=== PATIENT | male | born 1950 | race Caucasian/White ===

== ENCOUNTER 2017-11-28 17:16 | Day surgery (SDC) | payer MEDICARE, OTHER ==
[~2017-11-28] VITALS: Ht 185.4 cm; Wt 148.8 kg
[~2017-11-28 17:16] MED LIST: FERR325T18 PO; HYDR-2890 PO; OMEP20TA7 PO; SERT100T8 PO
--- OUTSIDE RECORDS SUMMARY | 2017-11-28 17:22 | XMS REPORT | Continuity of Care Document ---
Author Author [facility] Organization [facility] Address Unknown Phone Unavailable Allergies Active Description Code Type Severity Reaction Onset Reported/Identified Relationship to Patient Clinical Status Yes No Known Drug Allergies [id number] Drug Allergy Unknown N/A 10/13/2015 Medications There is no data. Problems Date Dx Coded Attending Type Code Diagnosis Diagnosed By 03/06/2009 Ot 569.0 ANAL RECTAL POLYP 03/06/2009 Ot V76.51 SCREEN MAL NEOP-COLON 02/26/2011 Ot 592.1 02/26/2011 Ot 789.09 02/16/2015 YARELI ISBELL MD Ot R05 02/17/2015 YARELI ISBELL MD Ot R05 02/24/2015 YARELI ISBELL MD Ot R05 10/13/2015 YARELI ISBELL MD Ot D50.9 IRON DEFICIENCY ANEMIA, UNSPECIFIED 10/13/2015 YARELI ISBELL MD Ot Z01.818 ENCOUNTER FOR OTHER PREPROCEDURAL EXAMIN 10/15/2015 YARELI ISBELL MD Ot D50.9 IRON DEFICIENCY ANEMIA, UNSPECIFIED 10/15/2015 YARELI ISBELL MD Ot Z01.818 ENCOUNTER FOR OTHER PREPROCEDURAL EXAMIN 10/15/2015 YARELI ISBELL MD Ot D50.9 IRON DEFICIENCY ANEMIA, UNSPECIFIED 10/15/2015 YARELI ISBELL MD Ot Z01.818 ENCOUNTER FOR OTHER PREPROCEDURAL EXAMIN 10/16/2015 YARELI ISBELL MD Ot D50.9 IRON DEFICIENCY ANEMIA, UNSPECIFIED 10/16/2015 YARELI ISBELL MD Ot K29.50 UNSPECIFIED CHRONIC GASTRITIS WITHOUT BL 10/16/2015 YARELI ISBELL MD Ot K31.7 POLYP OF STOMACH AND DUODENUM 10/21/2015 YARELI ISBELL MD Ot D50.9 IRON DEFICIENCY ANEMIA, UNSPECIFIED 10/21/2015 YARELI ISBELL MD Ot K29.50 UNSPECIFIED CHRONIC GASTRITIS WITHOUT BL 10/21/2015 YARELI ISBELL MD Ot K31.7 POLYP OF STOMACH AND DUODENUM 10/23/2015 YARELI ISBELL MD Ot D50.9 IRON DEFICIENCY ANEMIA, UNSPECIFIED 10/23/2015 YARELI ISBELL MD Ot K29.50 UNSPECIFIED CHRONIC GASTRITIS WITHOUT BL 10/23/2015 YARELI ISBELL MD Ot K31.7 POLYP OF STOMACH AND DUODENUM 11/07/2016 YARELI ISBELL MD Ot R05 COUGH 11/16/2017 YARELI ISBELL MD Ot R05 COUGH Procedures There is no data. Results There is no data. Encounters ACCT No. Visit Date/Time Discharge Status Pt. Type Provider Facility Loc./Unit Complaint [id number] 11/15/2017 15:40:00 11/15/2017 23:59:59 CLS Preadmit YARELI ISBELL MD [facility] RT INCREASED SOB,COUGH [id number] 10/16/2015 08:23:00 10/16/2015 11:50:00 DIS Outpatient YARELI ISBELL MD [facility] SDC ANEMIA [id number] 10/13/2015 06:22:00 10/13/2015 13:37:00 DIS Outpatient YARELI ISBELL MD [facility] PREOP ANEMIA [id number] 02/12/2015 13:36:00 02/12/2015 23:59:59 CLS Outpatient YARELI ISBELL MD [facility] RAD COUGH [id number] 02/26/2011 07:34:00 Document Registration [id number] 03/06/2009 06:57:00 Document Registration
[2017-11-28] MEDS ORDERED: NITROGLYCERIN 0.4 MG SL TABS BTL 25'S SL PRN (17:30)
[2017-11-28] MEDS ORDERED: ASPIRIN 81 MG CHEW (CHILDREN'S ASA) PO ONE (17:30)
[2017-11-28 17:39] LABS: BASOPHILS % (AUTO) 0 % (0-10); EOSINOPHILS # (AUTO) 0.2 10^3/uL (0.0-0.3); EOSINOPHILS % (AUTO) 3 % (0-10); HEMATOCRIT 41 % (40-54); HEMOGLOBIN 13.6 G/DL (13.3-17.7); LYMPHOCYTES # (AUTO) 2.1 X 10^3 (1.0-4.0); LYMPHOCYTES % (AUTO) 30 % (12-44); MEAN CORPUSCULAR HEMOGLOBIN 27 PG (25-34); MEAN CORPUSCULAR HGB CONC 33 G/DL (32-36); MEAN CORPUSCULAR VOLUME 80 FL (80-99); MEAN PLATELET VOLUME 10.1 FL (7.4-10.4); MONOCYTES # (AUTO) 0.6 X 10^3 (0.0-1.0); MONOCYTES % (AUTO) 9 % (0-12); NEUTROPHILS % (AUTO) 58 % (42-75); PLATELET COUNT 272 10^3/uL (130-400); RED CELL DISTRIBUTION WIDTH 17.3 % (10.0-14.5)
--- NOTE | 2017-11-28 17:45 | ED Chest Pain ---
General Stated Complaint: CHEST TIGHTNESS, SOB, SWEATY Source: patient Exam Limitations: no limitations (JOE ALCANTAR MD) History of Present Illness Date Seen by Provider: Nov 28, 2017 Time Seen by Provider: 17:21 Initial Comments Here with report of tightness in his chest and shortness of breath when he was walking. He is noted that this is increased with activity over the last several months. He is scheduled for pulmonary function test tomorrow. He recently had labs drawn with a BNP that was noted to be normal. Tonight did concern him a little bit as he was more short of breath than he typically is when walking. States that he is anemic but does not know what that level is. Denies active chest pain now and states that he feels better. [place] weakness in that still continues although a little less. Was also noted to be sweating during the event which has also resolved. Timing/Duration: 1 hour, changing over time Severity/Quality: moderate, tightness Location: central Radiation: no radiation Activities at Onset: activity Prior CP/Workup: no prior chest pain, no prior cardiac workup ASA po VULCANIZING PRESS OPERATOR: No NTG SL VULCANIZING PRESS OPERATOR: No Associated Symptoms: No abdominal pain, No back pain; diaphoresis; No dizziness ; fatigue; No nausea/vomiting; shortness of breath, weakness (JOE ALCANTAR MD) Allergies and Home Medications Allergies Coded Allergies: No Known Drug Allergies (Unverified , 11/28/17) Home Medications Omeprazole 20 Mg Tablet.dr, 20 MG PO DAILY, (Reported) Sertraline HCl 100 Mg Tablet, 150 MG PO DAILY, (Reported) TAKE 1 1/2 OF 100MG TAB TO TOTAL 150MG Patient Home Medication List Home Medication List Reviewed: Yes (JOE ALCANTAR MD) Review of Systems Constitutional: see HPI; No chills, No fever EENTM: No Symptoms Reported Respiratory: See HPI Cardiovascular: See HPI; Denies Palpitations, Denies Syncope Gastrointestinal: Denies Abdominal Pain, Denies Nausea, Denies Vomiting Genitourinary: No Symptoms Reported Musculoskeletal: no symptoms reported (JOE ALCANTAR MD) All Other Systems Reviewed Negative Unless Noted: Yes (JOE ALCANTAR MD) Past Cgihmha-Aigvzg-Akptma Hx Past Med/Social Hx: Reviewed Nursing Past Med/Soc Hx (JOE ALCANTAR MD) Patient Social History Alcohol Use: Denies Use Recreational Drug Use: No Smoking Status: Never a Smoker Former Smoker, Quit: Oct 15, 1989 (JOE ALCANTAR MD) Past Medical History Surgeries: Yes (skin) Testicular Respiratory: No Cardiac: No Neurological: No Gastrointestinal: Yes Gastroesophageal Reflux, Gastrointestinal Bleed Musculoskeletal: No Psychosocial: Yes Depression (JOE ALCANTAR MD) Family Medical History No Pertinent Family Hx (JOE ALCANTAR MD) Physical Exam Vital Signs Vital Signs - First Documented 11/28/17 17:16 Temp 98.0 Pulse 69 Resp 16 B/P (MAP) 144/78 (100) Pulse Ox 97 O2 Delivery Room Air (BLANCA GRIFFIN APRN) Vital Signs Capillary Refill : (JOE ALCANTAR MD) Height, Weight, BMI Height: 6'1.00" Weight: 300lbs. 0.0oz. 136.662605ww; 39.6 BMI Method:Stated General Appearance: No Apparent Distress, WD/WN, Obese HEENT: PERRL/EOMI, Pharynx Normal Neck: Non Tender, Supple Respiratory: Lungs Clear, Normal Breath Sounds Cardiovascular: Regular Rate, Rhythm, No Murmur Gastrointestinal: Non Tender, Soft Extremity: Normal Range of Motion, Non Tender Neurologic/Psychiatric: Alert, Oriented x3 Skin: Normal Color, Warm/Dry (JOE ALCANTAR MD) Progress/Results/Core Measures Results/Orders Lab Results Laboratory Tests Test 11/28/17 17:30 Range/Units White Blood Count 7.0 4.3-11.0 10^3/uL Red Blood Count 5.10 4.35-5.85 10^6/uL Hemoglobin 13.6 13.3-17.7 G/DL Hematocrit 41 40-54 % Mean Corpuscular Volume 80 80-99 FL Mean Corpuscular Hemoglobin 27 25-34 PG Mean Corpuscular Hemoglobin Concent 33 32-36 G/DL Red Cell Distribution Width 17.3 H 10.0-14.5 % Platelet Count 272 130-400 10^3/uL Mean Platelet Volume 10.1 7.4-10.4 FL Neutrophils (%) (Auto) 58 42-75 % Lymphocytes (%) (Auto) 30 12-44 % Monocytes (%) (Auto) 9 0-12 % Eosinophils (%) (Auto) 3 0-10 % Basophils (%) (Auto) 0 0-10 % Neutrophils # (Auto) 4.0 1.8-7.8 X 10^3 Lymphocytes # (Auto) 2.1 1.0-4.0 X 10^3 Monocytes # (Auto) 0.6 0.0-1.0 X 10^3 Eosinophils # (Auto) 0.2 0.0-0.3 10^3/uL Basophils # (Auto) 0.0 0.0-0.1 10^3/uL Prothrombin Time 14.5 12.2-14.7 SEC INR Comment 1.1 0.8-1.4 Activated Partial Thromboplast Time 31 24-35 SEC D-Dimer 0.52 H 0.00-0.49 UG/ML Sodium Level 138 135-145 MMOL/L Potassium Level 3.9 3.6-5.0 MMOL/L Chloride Level 106 98-107 MMOL/L Carbon Dioxide Level 23 21-32 MMOL/L Anion Gap 9 5-14 MMOL/L Blood Urea Nitrogen 15 7-18 MG/DL Creatinine 0.94 0.60-1.30 MG/DL Estimat Glomerular Filtration Rate > 60 BUN/Creatinine Ratio 16 Glucose Level 90 70-105 MG/DL Calcium Level 8.8 8.5-10.1 MG/DL Corrected Calcium 8.7 8.5-10.1 MG/DL Magnesium Level 2.0 1.8-2.4 MG/DL Total Bilirubin 0.7 0.1-1.0 MG/DL Aspartate Amino Transf (AST/SGOT) 24 5-34 U/L Alanine Aminotransferase (ALT/SGPT) 27 0-55 U/L Alkaline Phosphatase 89 40-136 U/L Myoglobin 97.7 H 10.0-92.0 NG/ML Troponin I < 0.30 <0.30 NG/ML B-Type Natriuretic Peptide 40.8 <100.0 PG/ML Total Protein 6.8 6.4-8.2 GM/DL Albumin 4.1 3.2-4.5 GM/DL (BLANCA GRIFFIN APRN) Medications Given in ED Current Medications Medications Dose Ordered Sig/Artem Route Start Time Stop Time Status Last Admin Dose Admin Aspirin 324 mg ONCE ONCE PO 11/28/17 17:30 11/28/17 17:31 DC 11/28/17 17:57 324 MG (BLANCA GRIFFIN APRN) Vital Signs/I&O 11/28/17 17:16 Temp 98.0 Pulse 69 Resp 16 B/P (MAP) 144/78 (100) Pulse Ox 97 O2 Delivery Room Air (BLANCA GRIFFIN APRN) Progress Progress Note : Progress Note Seen and evaluated. IV, labs, EKG and chest x-ray. I did discuss the case with Dr. Daley at 1735. Given patient's history and presentation he would prefer admission but patient is not sure he wants to do that. We will get an initial set of labs and reevaluate after that is complete. Initial EKG does not show any significant findings and patient is doing better currently. Aspirin 324 milligrams by mouth given. Monitor patient. (JOE ALCANTAR MD) Initial ECG Impression Date: Nov 28, 2017 Initial ECG Impression Time: 17:21 Initial ECG Rhythm: Normal Sinus Initial ECG Comparisson: No Previous ECG Available Comment Sinus rhythm with normal axis. No evidence of ST elevation MT. No previous available for comparison. Interpreted by me. (JOE ALCANTAR MD) Departure Communication (Admissions) Time/Spoke to Admitting Phy: 18:[address] Mullen who will admit. Will consult cardiology. I'll repeat a troponin at 11 PM which is 6 hours after arrival and again at 5 AM. Time/Spoke to Consulting Phy: 18:[address] Metz on-call for cardiology. He'll see Mr. Fernandes in the morning , nothing by mouth after midnight. 1824 he remains symptom-free. His preference would be to go home after repeat troponin few hours. His d-dimer adjusted for age is negative. However his is very concerned about him and would like to see him admitted. After much debate between her and him, she convinced him to stay to be observed and have cardiology consult. (BLANCA GRIFFIN APRN) Impression Primary Impression: Chest pain on exertion Disposition: ADMITTED INPATIENT Condition: Stable Admissions Decision to Admit Reason: Admit from ER (General) Decision to Admit/Date: Nov 28, 2017 Time/Decision to Admit Time: 18:26 (BLANCA GRIFFIN APRN) Departure-Patient Inst. Referrals: YARELI DALEY MD (PCP/Family) Primary Care Physician JOE ALCANTAR MD Nov 28, 2017 17:45 BLANCA GRIFFIN APRN Nov 28, 2017 18:27
[2017-11-28 17:53] LABS: INR 1.1 (0.8-1.4); PROTHROMBIN TIME PATIENT 14.5 SEC (12.2-14.7)
--- NOTE | 2017-11-28 17:53 | Diagnostic Imaging Report ---
Patient History: Chest discomfort, sweating, shortness of breath. Technique: Single frontal view of the chest Comparison: 02/12/2015 FINDINGS: The lung volumes are normal. No focal consolidation is seen. No large pleural effusion or pneumothorax is seen. The cardiac silhouette appears larger compared to the prior exam, although this is likely due to the change in technique and inspiration. No acute osseous abnormality is seen. IMPRESSION: No acute pulmonary abnormality seen. Dictated by: Dictated on workstation # [id number]
[2017-11-28 18:00] LABS: ALANINE AMINOTRANSFERASE 27 U/L (0-55); ALBUMIN 4.1 GM/DL (3.2-4.5); ALKALINE PHOSPHATASE 89 U/L (40-136); BILIRUBIN,TOTAL 0.7 MG/DL (0.1-1.0); BUN/CREATININE RATIO 16; CALCIUM 8.8 MG/DL (8.5-10.1); CARBON DIOXIDE 23 MMOL/L (21-32); CHLORIDE 106 MMOL/L (98-107); CREATININE SERUM 0.94 MG/DL (0.60-1.30); GFR ESTIMATED > 60; GLUCOSE 90 MG/DL (70-105); POTASSIUM 3.9 MMOL/L (3.6-5.0); SODIUM 138 MMOL/L (135-145); TOTAL PROTEIN 6.8 GM/DL (6.4-8.2)
[2017-11-28 18:06] LABS: MYOGLOBIN SERUM 97.7 NG/ML (10.0-92.0)
--- OUTSIDE RECORDS SUMMARY | 2017-11-28 18:28 | XMS REPORT | Continuity of Care Document ---
Author Author [facility] Organization [facility] Address Unknown Phone Unavailable Allergies Active Description Code Type Severity Reaction Onset Reported/Identified Relationship to Patient Clinical Status Yes No Known Drug Allergies [id number] Drug Allergy Unknown N/A 10/13/2015 Medications There [...] Status Pt. Type Provider Facility Loc./Unit Complaint [id number] 11/15/2017 15:40:00 11/15/2017 23:59:59 CLS Preadmit YARELI ISBELL MD [facility] RT INCREASED SOB,COUGH [id number] 10/16/2015 08:23:00 10/16/2015 11:50:00 DIS Outpatient YARELI ISBELL MD [facility] SDC ANEMIA [id number] 10/13/2015 06:22:00 10/13/2015 13:37:00 DIS Outpatient YARELI ISBELL MD [facility] PREOP ANEMIA [id number] 02/12/2015 13:36:00 02/12/2015 23:59:59 CLS Outpatient YARELI ISBELL MD [facility] RAD COUGH [id number] 02/26/2011 07:34:00 Document Registration [id number] 03/06/2009 06:57:00 Document Registration
[2017-11-28 19:00] VITALS: BP 146/85
[2017-11-29] VITALS (15 sets, daily range): BP systolic 115–144; BP diastolic 65–78
[2017-11-29 06:37] LABS: CHOLESTEROL 180 MG/DL (< 200); HDL CHOLESTEROL 54 MG/DL (40-60); TRIGLYCERIDES 113 MG/DL (<150); VLDL CHOLESTEROL 23 MG/DL (5-40)
--- NOTE | 2017-11-29 08:33 | History & Physical-Hospitalist ---
History of Present Illness HPI/Chief Complaint Mr. Fernandes is a 67-year-old white male who was at [employer] shopping with his . He had to get down on his hands and knees to grab some bottles of soda at the back of the bottom shelf when he became significantly diaphoretic and short of breath. He had impending sense of doom with this and told his he wanted to get out of the store because he did not want to and [employer]. He has some associated chest tightness with this. He has no history of panic disorder and for at least the past month it been experiencing significant increase in dyspnea on exertion over baseline. Previously in the office he denied chest symptoms and had been scheduled for pulmonary function tests. He is also noted a dry nonproductive cough chronic for the last 2 years with previously normal chest x-ray and office-based spirometry last year. He reports on Monday he went for a walk felt pretty good initially but had to stop after about three quarters of a mile, and rest secondary to shortness of breath with mild chest tightness. The episode at [employer] lasted 10-15 minutes in regards to his sweating and mild chest discomfort. He has no known past history of coronary artery disease. There is no family history for early coronary disease. Other risk factor other than male sex is obesity and a distant past history of smoking. Date Seen 11/29/17 Time Seen by Provider: 08:00 Attending Physician Yareli Isbell MD PCP Yareli Isbell MD Referring Physician Date of Admission Nov 28, 2017 at 18:24 Home Medications & Allergies Home Medications Reviewed patient Home Medication Reconciliation performed by pharmacy medication reconciliations specimen technician and/or nursing. Patients Allergies have been reviewed. Allergies Allergies Coded Allergies No Known Drug Allergies (Unverified11/28/17) Past Nbnvbxe-Xhdyrl-Avdkkb Hx Past Med/Social Hx: Reviewed Nursing Past Med/Soc Hx, Reviewed and Corrections made Patient Social History Alcohol Use: Denies Use Recreational Drug Use: No Smoking Status: Former Smoker Former Smoker, Quit: Apr 24, 1989 Type Used: Cigarettes Physical Abuse Screen: No Sexual Abuse: No Recent Foreign Travel: No Contact w/other who traveled: No Recent Hopitalizations: No Recent Infectious Disease Expo: No Immunizations Up To Date Pediatric: Yes Date of Pneumonia Vaccine: Apr 24, 2016 Seasonal Allergies Seasonal Allergies: No Past Medical History Surgeries: Testicular Currently Using CPAP: No Currently Using BIPAP: No Sexually Transmitted Disease: No HIV/AIDS: No Gastrointestinal: Gastroesophageal Reflux Loss of Vision: Denies Hearing Impairment: Denies Psychosocial: Anxiety History of Blood Disorders: Yes (anemia ) Family History FH: emphysema 19 FATHER FH: prostate cancer 19 FATHER No Pertinent Family Hx Review of Systems Constitutional: see HPI, diaphoresis Respiratory: see HPI, cough, dyspnea on exertion; No hemoptysis, No orthopnea, No phlegm; short of breath; No stridor, No wheezing, No other Cardiovascular: see HPI; No chest pain, No edema, No Hx of Intervention, No palpitations, No syncope, No vascular heart diseas, No other Gastrointestinal: no symptoms reported Physical Exam Physical Exam Vital Signs Vital Signs - First Documented 11/28/17 17:16 Temp 98.0 Pulse 69 Resp 16 B/P (MAP) 144/78 (100) Pulse Ox 97 O2 Delivery Room Air Capillary Refill : Less Than 3 Seconds Height, Weight, BMI Height: 6'1.00" Weight: 328lbs. 0.0oz. 148.676980zn; 43.3 BMI Method:Stated General Appearance: No Apparent Distress, WD/WN, Obese HEENT: PERRL/EOMI, TMs Normal, Normal ENT Inspection, Pharynx Normal Neck: Full Range of Motion, Normal Inspection, Non Tender, Supple, Carotid Bruit Respiratory: Chest Non Tender, Lungs Clear, Normal Breath Sounds, No Accessory Muscle Use, No Respiratory Distress Cardiovascular: Regular Rate, Rhythm, No Edema, No Gallop, No JVD, No Murmur, Normal Peripheral Pulses Gastrointestinal: Normal Bowel Sounds, No Organomegaly, No Pulsatile Mass, Non Tender, Soft Extremity: Normal Capillary Refill, Normal Inspection, Normal Range of Motion, Non Tender, No Calf Tenderness, No Pedal Edema Neurologic/Psychiatric: Alert, Oriented x3, No Motor/Sensory Deficits, Normal Mood/Affect Results Results/Procedures Labs Laboratory Tests 11/28/17 17:30 Patient resulted labs reviewed. Assessment/Plan Admission Diagnosis 1. Diaphoresis shortness of breath or chest discomfort suspicious for unstable angina. Cardiology has been consulted patient is been nothing by mouth for possible heart catheter later today which was discussed with the patient. Serial troponins have been negative and baseline EKG when the patient was asymptomatic reveals no significant abnormality. 2. The patient does have iron deficiency without significant anemia and recent occult positive stools for which she is scheduled for colonoscopy and possible EGD to follow this Monday. Unfortunately if dual antiplatelet therapy is required this will put him at increased risk for bleeding. Admission Status: Observation Reason for Inpatient Admission: See admission diagnosis Clinical Quality Measures AMI/AHF: ASA po Prior to arrival: No DVT/VTE Risk/Contraindication: Risk Factor Score Per Nursin RFS Level Per Nursing on Admit: 3=High YARELI ISBELL MD Nov 29, 2017 08:33
--- NOTE | 2017-11-29 08:42 | Consultation-Cardiology ---
HPI-Cardiology Cardiology Consultation Date of Consultation 11/29/17 Date of Admission Time Seen by Provider: 08:37 Indication: Chest pain, dyspnea HPI Patient is a very pleasant 67y/o male with no significant PMH. Presented to the ER with complaints of CP and dyspnea. Reports he was at [facility] with his yesterday when he began experiencing dyspnea with minimal exertion with associated diaphoresis and mild chest pressure. Reports episode lasted 10-15 minutes. 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 Denies any active chest pain at this time. This is a 67 years old gentleman with history of shortness of breath over the past few weeks that has been progressive, had few episode of chest tightness with exertion last episode occurred yesterday while was at [facility] where he became short of breath and diaphoretic. Described chest pain as tightness in the retrosternal area radiating to both arms. Patient came into the emergency room. He has a has been having more frequent episodes recently. Had some stuttering chest pain on and off. No palpitation or syncope. Home Medications & Allergies Allergies: Coded Allergies: No Known Drug Allergies (Unverified , 11/28/17) Home Medication List Reviewed: Yes Medication list reviewed VQJ-Idpgbg-Eubjbs Hx Patient Social History Marital Status: Employed/Student: retired Alcohol Use: Denies Use Recreational Drug Use: No Smoking Status: Former Smoker Type Used: Cigarettes Recent Foreign Travel: No Recent Infectious Disease Expo: No Recent Hopitalizations: No Physical Abuse Screen: No Sexual Abuse: No Immunizations Up To Date Date of Pneumonia Vaccine: Apr 24, 2016 Past Medical History Extobaccoism, obesity Family Medical History Significant Family History: No Pertinent Family Hx Family History: FH: emphysema 19 FATHER FH: prostate cancer 19 FATHER Constitutional: No chills; diaphoresis, malaise EENTM: No hearing loss, No blurred vision, No double vision, No vision loss Respiratory: cough, dyspnea on exertion, short of breath; No wheezing Cardiovascular: chest pain Gastrointestinal: No abdominal pain, No diarrhea, No hematemesis Genitourinary: No frequency, No hematuria Musculoskeletal: No back pain, No joint pain Skin: No lesions, No rash Psychiatric/Neurological: Denies Anxiety, Denies Depressed Reviewed Test Results Reviewed Test Results Lab Laboratory Tests 11/28/17 17:30: White Blood Count 7.0, Red Blood Count 5.10, Hemoglobin 13.6, Hematocrit 41, Mean Corpuscular Volume 80, Mean Corpuscular Hemoglobin 27, Mean Corpuscular Hemoglobin Concent 33, Red Cell Distribution Width 17.3H, Platelet Count 272, Mean Platelet Volume 10.1, Neutrophils (%) (Auto) 58, Lymphocytes (%) (Auto) 30 , Monocytes (%) (Auto) 9, Eosinophils (%) (Auto) 3, Basophils (%) (Auto) 0, Neutrophils # (Auto) 4.0, Lymphocytes # (Auto) 2.1, Monocytes # (Auto) 0.6, Eosinophils # (Auto) 0.2, Basophils # (Auto) 0.0, Prothrombin Time 14.5, INR Comment 1.1, Activated Partial Thromboplast Time 31, D-Dimer 0.52H, Sodium Level 138, Potassium Level 3.9, Chloride Level 106, Carbon Dioxide Level 23, Anion Gap 9, Blood Urea Nitrogen 15, Creatinine 0.94, Estimat Glomerular Filtration Rate > 60, BUN/Creatinine Ratio 16, Glucose Level 90, Calcium Level 8.8, Corrected Calcium 8.7, Magnesium Level 2.0, Total Bilirubin 0.7, Aspartate Amino Transf (AST/SGOT) 24, Alanine Aminotransferase (ALT/SGPT) 27, Alkaline Phosphatase 89, Myoglobin 97.7H, Troponin I < 0.30, B-Type Natriuretic Peptide 40.8, Total Protein 6.8, Albumin 4.1 11/29/17 00:01: Troponin I < 0.30 11/29/17 06:00: Troponin I < 0.30, Triglycerides Level 113, Cholesterol Level 180, LDL Cholesterol Direct 109, VLDL Cholesterol 23, HDL Cholesterol 54 ECG Impression ECG Initial ECG Rhythm: Normal Sinus Physical Exam Vital Signs Vital Signs - First Documented 11/28/17 17:16 Temp 98.0 Pulse 69 Resp 16 B/P (MAP) 144/78 (100) Pulse Ox 97 O2 Delivery Room Air Capillary Refill : Less Than 3 Seconds Height, Weight, BMI Height: 6'1.00" Weight: 328lbs. 0.0oz. 148.689984fv; 43.3 BMI Method:Stated General Appearance: No Apparent Distress, WD/WN HEENT: PERRL/EOMI, TMs Normal, Normal ENT Inspection Neck: Full Range of Motion, Normal Inspection, Non Tender, Supple; No Carotid Bruit Respiratory: Chest Non Tender, Lungs Clear, Normal Breath Sounds, No Accessory Muscle Use, No Respiratory Distress Cardiovascular: Regular Rate, Rhythm, No Edema, No Gallop, No JVD, No Murmur, Normal Peripheral Pulses Gastrointestinal: Non Tender, Soft Rectal: Deferred Back: No CVA Tenderness Extremity: Non Tender, No Calf Tenderness, No Pedal Edema Neurologic/Psychiatric: Alert, Oriented x3, tank terminal gauger II-XII Norm as Tested Skin: Normal Color, Warm/Dry Lymphatic: No Adenopathy A/P-Cardiology Admission Diagnosis Chest pain Dyspnea Obesity Extobaccoism Assessment/Plan Chest pain, resembling accelerating angina- EKG revealed no acute ST changes, cardiac enzymes negative. However, patients symptoms are concerning for underlying CAD. Discussed management plan with patient. Will discuss with Dr. Metz stress test vs. cardiac catheterization to be done today. Will keep patient NPO. Dyspnea, angina equivalent, management as discussed above Obesity Extobaccoism- history of cigarette use in remote past. HLP- mildly elevated LDL. Continue to monitor. Thank you for allowing us to participate in the management of Mr. Fernandes. This is Rosalie Robbins PA-C, as a scribe for Dr. Metz. This is Dr. Metz, I have seen and evaluated the patient with Rosalie, interviewed the patient and examine him personally. Discussed the management plan with Rosalie and agree with the current scribe. On my examination his lungs were clear to auscultation bilaterally, heart is regular rate and rhythm, neck supple with no JVD. No pedal edema was noted. He has been reporting recurrent chest pain. We discussed the management plan recommended proceeding with cardiac catheterization. Patient has been anxious about the recurrent chest pain and increased risk factors. He agreed on the procedure understands the risks and benefits. I reviewed the above scribe and made few minor modification using Italic Font Clinical Quality Measures AMI/AHF: ASA po Prior to arrival: No DVT/VTE Risk/Contraindication: Risk Factor Score Per Nursin RFS Level Per Nursing on Admit: 3=High ROSALIE SAAB Nov 29, 2017 08:42 DEB METZ MD Nov 29, 2017 13:17
[2017-11-29] MEDS ORDERED: ASPIRIN E.C. 81 MG (ECOTRIN) TAB PO SCH (09:00)
[2017-11-29] MEDS ORDERED: OMEP40CA36 PO (10:22)
[2017-11-29] MEDS ORDERED: FERR-84 PO (10:22)
[2017-11-29] MEDS ORDERED: NAPR220T66 PO (10:24)
[2017-11-29] MEDS ORDERED: HEParin (CATH LAB) 2,000 ML IV ONE (10:52)
[2017-11-29] MEDS ORDERED: NS IV 1000 ML 1,000 ML ONE (10:52)
--- NOTE | 2017-11-29 13:18 | Cardiac Procedure Note-CS/ASA ---
Pre-Procedure Note Pre-Op Procedure Note H&P Reviewed The H&P was reviewed, patient examined and no changes noted. Date H&P Reviewed: Nov 29, 2017 Time H&P Reviewed: 13:17 Conscious Sedation Pre-Proced Time Reviewed: 13:17 ASA Class: 3 Airway Mallampati Classification: ([place] appropriate class) I. II. III, IV Lungs Heart ASA score ASA 1: a normal healthy patient ASA 2: a patient with a mild systemic disease (mid diabetes, controlled hypertension, obesity x ASA 3: a patient with a severe systemic disease that limits activity (angina , COPD, prior Myocardial infarction) ASA 4: a patient with an incapacitating disease that is a constant threat to life (CHF, renal failure) ASA 5: a moribund patient not expected to survive 24 hrs. (ruptured aneurysm) ASA 6: a declared brain patient whose organs are being harvested. For emergent operations, add the letter E after the classification Grade 3 Sedation Plan: Analgesia, Amnesia, Plan communicated to team members, Discussed options with patient/fam, Discussed risks with patient/fam Note The patient is an appropriate candidate to undergo the planned procedure, sedation, and anesthesia. The patient immediately re-assessed prior to indication. DEB MALDONADO MD Nov 29, 2017 13:18
[2017-11-29] MEDS ORDERED: LIDOCAINE 1% INJ 20 ML 20 ML VIAL ONE (13:35)
[2017-11-29] MEDS ORDERED: MIDAZOLAM 5 MG/5 ML (VERSED) VIAL ONE (13:52)
[2017-11-29] MEDS ORDERED: fentaNYL INJECTION 100 MCG/2 ML AMP ONE (13:53)
[2017-11-29] MEDS ORDERED: NS IV 1000 ML 1,000 ML IV SCH ×2 (14:00→14:27)
[2017-11-29] MEDS ORDERED: ASPI-983 PO (14:28)
--- NOTE | 2017-11-29 14:29 | Discharge Inst-Post CATH ---
Discharge Inst-CATH Post Cardiac Cath D/C Inst Follow Up/Plan Appointment with Dr. Metz's office in 4 weeks CARDIAC CATH DISCHARGE INSTRUCTIONS *Hold Metformin for 48 hours post heart cath. ACTIVITY * Go Home directly and rest. * Limit activity of the leg (or wrist if it was used) for 7 days including aerobics, swimming, jogging, bicycling, etc. * Restrict stair-climbing for 7 days if possible, if not, climb up with your non -cath leg, then bring together on the same step. * Avoid lifting, pushing, pulling or excessive movement of the affected extremity for 7 days. * Customary sexual activity may be resumed after 2 days-use caution not to use a position that strains or causes pain to the affected extremity. * No driving for 24 hours. * NO SMOKING. * Avoid straining for bowel movements for 7 days. * Gentle walking on level ground is allowed. * Returning to work will depend on the type of procedure and the results. Your doctor will discuss this with you. CALL YOUR DOCTOR FOR ANY OF THE FOLLOWING: *If bleeding from the puncture site occurs- Apply gentle pressure to site with clean cloth and call your doctor or EMS. * If a knot or lump forms under the skin, increases in size, or causes pain. * If bruising appears to be worsening or moving further down your leg instead of disappearing. * Temperature above 101 F. CARE OF YOUR GROIN INCISION; * Bruising or purple discoloration of the skin near the puncture site is common. * You may shower only, no bathtub bathing for 5 days. Be careful to avoid slipping as your leg may feel stiff. * If a closure device was used on your femoral artery, please see the attached guide regarding care of the device and your leg. * REMOVE the dressing from your groin the next day after your procedure in the shower. CARE OF YOUR WRIST INCISION; * Bruising or purple discoloration of the skin near the puncture site is common. * You may shower. * DO NOT submerge wrist. * Remove dressing in 24 hours. DEB METZ MD Nov 29, 2017 14:29
[2017-11-29] MEDS ORDERED: PATIENT MAY USE OWN MEDS, ALL PO SCH (14:30)
--- NOTE | 2017-11-29 14:32 | Cardiac Cath Report ---
Cardiac Cath Report Physician (s)/Network Support Technician (s) Physician DEB MALDONADO MD Pre-Procedure Diagnosis Pre-Procedure Diagnosis: Chest pain, shortness of breath Post-Procedure Note Procedure Start Date: Nov 29, 2017 Name of Procedure: Left heart catheterization Findings/Procedure Note PROCEDURE NOTE: After explaining the procedure to the patient, all pros and cons were explained , all questions were answered. The patient signed the consent and then he was placed on the cardiac catheterization laboratory. Groin was prepped SL fashion local anesthesia was used. Sheath placed in the right femoral artery. Raquel right and left catheter were used to access the coronary system. Pigtail was used to access the left ventricular cavity. Left ventriculogram was done At the end of the procedure the sheath was removed. Closure device was used FINDINGS: Hemodynamics LV 147/12, end-diastolic pressure of 12 Aorta 141/70 mean of 96 ANATOMY: Left Main is free of obstructive disease Left Anterior Descending is moderate in size with mild disease obstructive disease Left Circumflex is free of obstructive disease Right Coronory Artery has superior origin with a bend in the proximal portion, mild disease nonobstructive disease LV Gram was done showing normal left ventricular size with normal contraction of the estimated ejection fraction 60 percent CONCLUSION: 1. Superior origin of the right coronary artery with a bend in the proximal portion mild disease nonobstructive disease 2. Moderate size LAD with mild disease distally nonobstructive disease 3. Normal left ventricular size and systolic function estimated ejection fraction 60 percent DISCUSSION AND RECOMMENDATION: Medical therapy is recommended, mild coronary artery disease, diet and exercise is recommended, monitoring blood pressure. Anesthesia Type: Conscious Sedation Estimated blood loss (mL): 15 ml Contrast Amount: 55 ml Total Radiation Dose: 791 mGy Post-Procedure Diagnosis Post-operative diagnosis: Chest pain nonspecific etiology Coronary artery disease Hyperlipidemia Anemia DEB MALDONADO MD Nov 29, 2017 14:32
--- OUTSIDE RECORDS SUMMARY | 2017-12-06 15:20 | XMS REPORT | Continuity of Care Document ---
Author Author [facility] Organization [facility] Address Unknown Phone Unavailable Allergies Active Description Code Type Severity Reaction Onset Reported/Identified Relationship to Patient Clinical Status Yes No Known Drug Allergies [id number] Drug Allergy Unknown N/A 10/13/2015 Medications There [...] OF STOMACH AND DUODENUM 10/23/2015 YARELI ISBELL MD, Ot D50.9 IRON DEFICIENCY ANEMIA, UNSPECIFIED 10/23/2015 YARELI ISBELL MD, Ot K29.50 UNSPECIFIED CHRONIC GASTRITIS WITHOUT BL 10/23/2015 YARELI ISBELL MD, Ot K31.7 POLYP OF STOMACH AND DUODENUM 11/07/2016 YARELI ISBELL MD, Ot R05 COUGH 11/16/2017 YARELI ISBELL MD, Ot R05 COUGH Procedures There is no data. Results Test Result Range Serum or plasma troponin i.cardiac measurement (mass/volume) - 11/28/17 00:15 Serum or plasma troponin i.cardiac measurement (mass/volume) < ng/ mL <0.30 Complete blood count (CBC) with automated white blood cell (WBC) differential - 11/28/17 17:30 Blood leukocytes automated count (number/volume) 7.0 10*3/uL 4.3-11.0 Blood erythrocytes automated count (number/volume) 5.10 10*6/uL 4.35-5.85 Venous blood hemoglobin measurement (mass/volume) 13.6 g/dL 13.3-17.7 Blood hematocrit (volume fraction) 41 % 40-54 Automated erythrocyte mean corpuscular volume 80 [foz_us] 80-99 Automated erythrocyte mean corpuscular hemoglobin (mass per erythrocyte) 27 pg 25-34 Automated erythrocyte mean corpuscular hemoglobin concentration measurement ( mass/volume) 33 g/dL 32-36 Automated erythrocyte distribution width ratio 17.3 % 10.0-14.5 Automated blood platelet count (count/volume) 272 10*3/uL 130-400 Automated blood platelet mean volume measurement 10.1 [foz_us] 7.4-10.4 Automated blood neutrophils/100 leukocytes 58 % 42-75 Automated blood lymphocytes/100 leukocytes 30 % 12-44 Blood monocytes/100 leukocytes 9 % 0-12 Automated blood eosinophils/100 leukocytes 3 % 0-10 Automated blood basophils/100 leukocytes 0 % 0-10 Blood neutrophils automated count (number/volume) 4.0 10*3 1.8-7.8 Blood lymphocytes automated count (number/volume) 2.1 10*3 1.0-4.0 Blood monocytes automated count (number/volume) 0.6 10*3 0.0-1.0 Automated eosinophil count 0.2 10*3/uL 0.0-0.3 Automated blood basophil count (count/volume) 0.0 10*3/uL 0.0-0.1 PT panel in platelet poor plasma by coagulation assay - 11/28/17 17:30 Prothrombin time (PT) in platelet poor plasma by coagulation assay 14.5 s 12.2-14.7 INR in platelet poor plasma or blood by coagulation assay 1.1 0.8-1.4 Activated partial thromboplastin time (aPTT) in platelet poor plasma bycoagulation assay - 11/28/17 17:30 Activated partial thromboplastin time (aPTT) in platelet poor plasma bycoagulation assay 31 s 24-35 Fibrin D-dimer FEU measurement in platelet poor plasma (mass/volume) - 17:30 Fibrin D-dimer FEU measurement in platelet poor plasma (mass/volume) 0.52 ug/mL 0.00-0.49 Comprehensive metabolic panel - 11/28/17 17:30 Serum or plasma sodium measurement (moles/volume) 138 mmol/L 135-145 Serum or plasma potassium measurement (moles/volume) 3.9 mmol/L 3.6-5.0 Serum or plasma chloride measurement (moles/volume) 106 mmol/L 98-107 Carbon dioxide 23 mmol/L 21-32 Serum or plasma anion gap determination (moles/volume) 9 mmol/L 5-14 Serum or plasma urea nitrogen measurement (mass/volume) 15 mg/dL 7-18 Serum or plasma creatinine measurement (mass/volume) 0.94 mg/dL 0.60-1.30 Serum or plasma urea nitrogen/creatinine mass ratio 16 NRG Serum or plasma creatinine measurement with calculation of estimated glomerular filtration rate > NRG Serum or plasma glucose measurement (mass/volume) 90 mg/dL 70-105 Serum or plasma calcium measurement (mass/volume) 8.8 mg/dL 8.5-10.1 Serum or plasma total bilirubin measurement (mass/volume) 0.7 mg/dL 0.1-1.0 Serum or plasma alkaline phosphatase measurement (enzymatic activity/volume) 89 U/L 40-136 Serum or plasma aspartate aminotransferase measurement (enzymatic activity/ volume) 24 U/L 5-34 Serum or plasma alanine aminotransferase measurement (enzymatic activity/volume ) 27 U/L 0-55 Serum or plasma protein measurement (mass/volume) 6.8 g/dL 6.4-8.2 Serum or plasma albumin measurement (mass/volume) 4.1 g/dL 3.2-4.5 CALCIUM CORRECTED 8.7 mg/dL 8.5-10.1 Magnesium - 11/28/17 17:30 Magnesium 2.0 mg/dL 1.8-2.4 Serum or plasma troponin i.cardiac measurement (mass/volume) - 11/28/17 17:30 Serum or plasma troponin i.cardiac measurement (mass/volume) < ng/ mL <0.30 Myoglobin, serum - 11/28/17 17:30 Myoglobin, serum 97.7 ng/mL 10.0-92.0 Serum or plasma lithium measurement (moles/volume) - 11/28/17 17:30 BNP level 40.8 pg/mL <100.0 Serum or plasma troponin i.cardiac measurement (mass/volume) - 11/29/17 00:01 Serum or plasma troponin i.cardiac measurement (mass/volume) < ng/ mL <0.30 Serum or plasma troponin i.cardiac measurement (mass/volume) - 11/29/17 06:00 Serum or plasma troponin i.cardiac measurement (mass/volume) < ng/ mL <0.30 Lipid 1996 panel - 11/29/17 06:00 Serum or plasma triglyceride measurement (mass/volume) 113 mg/dL <150 Serum or plasma cholesterol measurement (mass/volume) 180 mg/dL < 200 Serum or plasma cholesterol in HDL measurement (mass/volume) 54 mg/ dL 40-60 Cholesterol in LDL [mass/volume] in serum or plasma by direct assay 109 mg/dL 1-129 Serum or plasma cholesterol in VLDL measurement (mass/volume) 23 mg/ dL 5-40 Encounters ACCT No. Visit Date/Time Discharge Status Pt. Type Provider Facility Loc./Unit Complaint [id number] 11/15/2017 15:40:00 11/15/2017 23:59:59 CLS Preadmit YARELI ISBELL MD [facility] RT INCREASED SOB,COUGH [id number] 10/16/2015 08:23:00 10/16/2015 11:50:00 DIS Outpatient YARELI ISBELL MD [facility] SDC ANEMIA [id number] 10/13/2015 06:22:00 10/13/2015 13:37:00 DIS Outpatient YARELI ISBELL MD [facility] PREOP ANEMIA [id number] 02/12/2015 13:36:00 02/12/2015 23:59:59 CLS Outpatient YARELI ISBELL MD [facility] RAD COUGH [id number] 11/28/2017 17:42:00 Document Registration [id number] 02/26/2011 07:34:00 Document Registration [id number] 03/06/2009 06:57:00 Document Registration
== END 2017-11-29 19:17 | disposition home or self-care (01) ==
LOC: EDUNIT# 17:16 → ER 17:18 → UNDOADMOB 18:24 → 4TH 18:24 → CATH 18:50 → 4TH 18:50 → CATH 11-29 19:17 → UNDODISOB 11-29 19:17
PROVIDERS: ATTEND Family Medicine
DX: R07.89 Other chest pain (principal); R61 Generalized hyperhidrosis; R06.02 Shortness of breath; I25.10 Atherosclerotic heart disease of native coronary artery without angina pectoris; E78.5 Hyperlipidemia, unspecified; E61.1 Iron deficiency; K21.9 Gastro-esophageal reflux disease without esophagitis; E66.9 Obesity, unspecified; F32.9 Major depressive disorder, single episode, unspecified; F41.9 Anxiety disorder, unspecified; Z68.41 Body mass index [BMI] 40.0-44.9, adult; Z87.891 Personal history of nicotine dependence
CPT/HCPCS: 36415; 71045; 80053; 80061; 83735; 83874; 83880; 84484; 85025; 85379; 85610; 85730; 93005; 93041; 93458; G0378

== ENCOUNTER 2017-12-04 05:54 | Outpatient (CLI) | payer MEDICARE ==
[~2017-12-04] VITALS: Ht 185.4 cm; Wt 148.8 kg
[~2017-12-04 05:54] MED LIST changes: +ASPI-983 PO; +FERR-84 PO; +NAPR220T66 PO; +OMEP40CA36 PO
== END 2017-12-04 15:03 | disposition home or self-care (01) ==
LOC: PREOP 05:54
PROVIDERS: ATTEND Surgery
DX: Z01.818 Encounter for other preprocedural examination (principal)

== ENCOUNTER 2017-12-08 07:58 | Day surgery (SDC) | payer MEDICARE, OTHER ==
--- NOTE | 2017-12-06 17:58 | HISTORY AND PHYSICAL ---
DATE OF SERVICE: COLONOSCOPY AND POSSIBLE EGD HISTORY AND PHYSICAL DATE OF ADMISSION: 12/08/2017. HISTORY OF PRESENT ILLNESS: The patient was seen on 12/06 and scheduled for likely panendoscopy on the . He has a history of iron deficiency anemia and recent occult positive stool. He had an admission last week for diaphoresis, shortness of breath and some mild chest pressure with increased dyspnea on exertion. He underwent cardiac catheterization, which revealed clean coronaries after ruling out for an acute coronary syndrome. He had no arrhythmia issues and his hemoglobin was 13.7 with an MCV of 80. No other significant blood test abnormalities were appreciated. Because of chronic cough and shortness of breath, he did undergo a 6-minute walk test today. Baseline O2 saturations were 95%. There was no desaturation with activity. Initial heart rate was 72 at rest, higher heart rate was 120 towards the end of his walk and regular. He had originally been scheduled for colonoscopy on the , but was hospitalized at that time and it had to be canceled. Considering his clean catheterization and the fact that he told his that he had an impending sense of doom, we discussed panic disorder. He did not feel that he was anxious at all prior to the event and does not feel panic symptoms with some previous similar events. He does get diaphoretic and lightheaded raising the possibility of vagal events. He has been out of shape and we did discuss the importance of increased physical activity, continue to walk and resting if he is feeling dyspneic. PHYSICAL EXAMINATION: GENERAL: Reveals an obese white male whose weight is down 3 pounds over the past month. He weighs 323.8 pounds. VITAL SIGNS: Blood pressure was 130/74. HEENT: Unremarkable. NECK: Reveals no JVD, adenopathy or bruits. CHEST: Clear to auscultation. CARDIOVASCULAR: Reveals regular rate and rhythm without murmur, S3 or S4. EXTREMITIES: Reveal no cyanosis, clubbing or edema. ASSESSMENT AND PLAN: The patient is to proceed with colonoscopy with possible EGD to follow this Monday. Prep instructions and Suprep kit were given and questions were answered. His walking test suggests poor aerobic tolerance, but he maintained O2 saturations and did not have any other symptomatology with a 6-minute walk. He is strongly encouraged to continue a regular walking to improve shape and portion control to continue weight loss. Because of fatigue issues in review of his chart, he has not had a B12 or a TSH drawn in some time, so this was obtained today as well. Job ID: [id number] DocumentID: [id number] Dictated Date: 12/06/2017 16:52:58 Snow Removing Supervisor Date: 12/06/2017 17:57:36 Dictated By: YARELI ISBELL MD
[~2017-12-08] VITALS: Ht 185.4 cm; Wt 148.8 kg
[2017-12-08] MEDS ORDERED: D5 LR IV SOLUTION 1,000 ML IV STA (08:09)
[2017-12-08] MEDS ORDERED: D5 LR IV SOLUTION 1,000 ML IV ONE (08:11)
[2017-12-08] MEDS ORDERED: LIDOCAINE JELLY 2% (XYLOCAINE) 5 ML TUBE MM PRN (08:15)
[2017-12-08] MEDS ORDERED: HURRICAINE EXT TUBE (BENZOCAINE) XX PRN (08:15)
[2017-12-08 08:25] VITALS: BP 152/85
[2017-12-08] MEDS ORDERED: MIDAZOLAM 2 MG/2 ML (VERSED) VIAL ONE ×3 (08:46→08:47)
[2017-12-08] MEDS ORDERED: fentaNYL INJECTION 100 MCG/2 ML AMP ONE (08:47)
[2017-12-08] MEDS ORDERED: LIDOCAINE JELLY 2% (XYLOCAINE) 5 ML TUBE ONE (08:47)
[2017-12-08] MEDS ORDERED: HURRICAINE EXT TUBE (BENZOCAINE) ONE (08:47)
[2017-12-08] MEDS: fentaNYL INJECTION 100 MCG/2 ML AMP IVP PRN ×2 (09:05→09:15)
[2017-12-08] MEDS: MIDAZOLAM 2 MG/2 ML (VERSED) VIAL IVP PRN ×3 (09:07→09:43)
--- NOTE | 2017-12-08 10:04 | Pre-Op Note & Conscious Sedat ---
Pre-Operative Progress Note H&P Reviewed The H&P was reviewed, patient examined and no changes noted. Date H&P Reviewed: Dec 08, 2017 Time H&P Reviewed: 08:05 Conscious Sedation Pre-Proced ASA Class: 2 Airway Mallampati Classification: ([place] appropriate class) I. II. III, IV Lungs Heart ASA score ASA 1: a normal healthy patient ASA 2: a patient with a mild systemic disease (mid diabetes, controlled hypertension, obesity ASA 3: a patient with a severe systemic disease that limits activity (angina , COPD, prior Myocardial infarction) ASA 4: a patient with an incapacitating disease that is a constant threat to life (CHF, renal failure) ASA 5: a moribund patient not expected to survive 24 hrs. (ruptured aneurysm) ASA 6: a declared brain patient whose organs are being harvested. For emergent operations, add the letter E after the classification Grade 3 Sedation Plan: Analgesia, Amnesia, Plan communicated to team members, Discussed options with patient/fam, Discussed risks with patient/fam Note The patient is an appropriate candidate to undergo the planned procedure, sedation, and anesthesia. The patient immediately re-assessed prior to indication. YARELI ISBELL MD Dec 08, 2017 10:04
[2017-12-08 10:15] VITALS: BP 138/71
[2017-12-08 10:45] VITALS: BP 141/76
[2017-12-08 11:20] VITALS: BP 141/76
--- NOTE | 2017-12-08 12:44 | OPERATIVE REPORT ---
DATE OF SERVICE: 12/08/2017 PANENDOSCOPY SUMMARY For surveillance purposes due to occult positive in the stool and iron deficiency anemia. The patient was placed in left lateral decubitus position. Prior to undergoing colonoscopy, digital rectal evaluation was performed. Anal sphincter tone was normal. The perianal reflex is intact. The prostate is mildly enlarged, anodular and nontender to digital inspection. No other abnormalities on additional inspection of the anal canal or distal rectal vault. The colonoscope was then inserted into the rectum under direct visualization and advanced to the cecum. The cecum was identified by identification of the ileocecal valve and cecal strap. Photographic documentation was obtained. Careful inspection was made as colonoscope was withdrawn. FINDINGS: There is no blood noted throughout the colon on today's procedure. Present in the mid rectum was a diminutive polyp. There was some similar diminutive polyp noted in the descending colon. Both were biopsied and ablated. There was a small amount of oozing from the rectal polyp only. No other evidence for neoplasia was identified. No evidence for diverticular disease or vascular malformation was noted throughout the remainder of the colonoscopy. A/P: 1. No definitive bleeding sites were noted on today's colonoscopy. 2. Two diminutive polyps were removed, one from the mid rectum and the other one from the descending colon. There was a small amount of bleeding noted from the rectal polyp site, which ceased during observation. We then proceeded with EGD evaluation. The endoscope was inserted in the oral cavity and under direct visualization, the esophagus was intubated. The endoscope was passed down the esophagus through stomach and second portion of the duodenum. Careful inspection was made as the endoscope was withdrawn. The patient tolerated the procedure relatively well, did have some coughing. The posterior hypopharynx, arytenoid aperture, true and false vocal folds were unremarkable. No evidence for inflammation. The esophagus was unremarkable. A small sliding hiatal hernia is present, but the Z-line is distinct without evidence for erosive esophagitis. The cardia, fundus and antrum of the stomach were unremarkable. There is no evidence for blood in the upper GI tract. The pylorus, pyloric channel, the duodenal bulb and second portion of duodenum were unremarkable with normal villous architecture on gross inspection. Assessment say for a small hiatal hernia. EGD was otherwise unremarkable with no potential bleeding sites being identified. The patient is advised to continue iron therapy. His B12 level was right at the lower end of the normal range at 181, so he is going to receive a B12 injection to see if this and iron therapy improve fatigue symptoms and we will continue to monitor. He is to abstain from aspirin and nonsteroidal medication in the interim. Job ID: [id number] DocumentID: [id number] Dictated Date: 12/08/2017 10:15:42 Greeter Guest Services Date: 12/08/2017 12:44:10 Dictated By: YARELI ISBELL MD
--- OUTSIDE RECORDS SUMMARY | 2017-12-08 16:26 | XMS REPORT | Continuity of Care Document ---
Author Author [facility] Organization [facility] Address Unknown Phone Unavailable Allergies Active Description Code Type Severity Reaction Onset Reported/Identified Relationship to Patient Clinical Status Yes No Known Drug Allergies [id number] Drug Allergy Unknown N/A 10/13/2015 Medications There [...] Status Pt. Type Provider Facility Loc./Unit Complaint [id number] 11/15/2017 15:40:00 11/15/2017 23:59:59 CLS Preadmit YARELI ISBELL MD [facility] RT INCREASED SOB,COUGH [id number] 10/16/2015 08:23:00 10/16/2015 11:50:00 DIS Outpatient YARELI ISBELL MD [facility] SDC ANEMIA [id number] 10/13/2015 06:22:00 10/13/2015 13:37:00 DIS Outpatient YARELI ISBELL MD [facility] PREOP ANEMIA [id number] 02/12/2015 13:36:00 02/12/2015 23:59:59 CLS Outpatient YARELI ISBELL MD [facility] RAD COUGH [id number] 11/28/2017 17:42:00 Document Registration [id number] 02/26/2011 07:34:00 Document Registration [id number] 03/06/2009 06:57:00 Document Registration
== END 2017-12-08 11:20 | disposition home or self-care (01) ==
LOC: ENDO 07:58
PROVIDERS: ATTEND Internal Medicine
DX: D12.4 Benign neoplasm of descending colon (principal); K62.1 Rectal polyp; D50.9 Iron deficiency anemia, unspecified; K44.9 Diaphragmatic hernia without obstruction or gangrene

== ENCOUNTER → 2018-09-04 | Outpatient (CLI) | payer MEDICARE, OTHER ==
[2018-09-04 09:58] LABS: ABG BASE EXCESS -1.2 MMOL/L (-2.5-2.5); ABG OXYGEN SATURATION 99 % (94-100); ABG PCO2 30 MMHG (35-45); ABG PH 7.47 (7.37-7.43); ABG PO2 98 MMHG (79-93)
[2018-09-04 09:59] LABS: ALLENS TEST YES-POS; INSPIRED O2 ROOM AIR; PATIENT TEMP 98.1; VENTILATOR NO
== END ==
LOC: RT 09:31
PROVIDERS: ATTEND Nurse Practitioner Family
DX: R06.00 Dyspnea, unspecified (principal); J30.9 Allergic rhinitis, unspecified; R06.89 Other abnormalities of breathing; R05 Cough; F17.221 Nicotine dependence, chewing tobacco, in remission
CPT/HCPCS: 82805; 94761

== ENCOUNTER 2018-09-14 08:08 | Outpatient (CLI) | payer MEDICARE, OTHER ==
[2018-09-14 08:44] LABS: BUN/CREATININE RATIO 13; GFR ESTIMATED > 60
--- NOTE | 2018-09-14 12:31 | Diagnostic Imaging Report ---
PROCEDURE: CT chest with contrast only. TECHNIQUE: Multiple contiguous axial images were obtained through the chest after administration of intravenous contrast. Auto Exposure Controls were utilized during the CT exam to meet ALARA standards for radiation dose reduction. INDICATION: Dyspnea. COMPARISON: Radiographs dated November 28, [address] of the abdomen dated February 26, 2011. FINDINGS: No significant adenopathy within the chest. No aneurysmal dilatation of the thoracic aorta. The heart is within normal limits in size. No pericardial effusion. No pleural effusion. No pneumothorax. The lungs are clear. Diffusely decreased density of the liver. The gallbladder is dilated measuring up to 12.4 cm in length. The visualized upper abdomen is otherwise unremarkable. No acute osseous abnormality. IMPRESSION: The gallbladder is dilated. This may simply be physiologic for the patient, though this can also be seen with acute cholecystitis though there is no fat stranding about the gallbladder. If there is clinical concern for acute cholecystitis, then a right upper quadrant ultrasound would be recommended. Fatty infiltration of the liver. No acute abnormality within the chest. Dictated by: Dictated on workstation # [id number]
== END 2018-09-14 10:45 | disposition home or self-care (01) ==
LOC: RAD 08:08
PROVIDERS: ATTEND Nurse Practitioner Family
DX: J30.9 Allergic rhinitis, unspecified (principal); F17.221 Nicotine dependence, chewing tobacco, in remission; K82.8 Other specified diseases of gallbladder; K76.0 Fatty (change of) liver, not elsewhere classified
CPT/HCPCS: 36415; 71260; 82565; 84520

== ENCOUNTER → 2018-11-12 | Outpatient (CLI) | payer MEDICARE, OTHER ==
[~2018-11-12] MED LIST changes: +RT-ALBUTEROL SULF 2.5 MG/3 ML PRE-MIX VIAL INH ONE
== END ==
LOC: RT 08:59
PROVIDERS: ATTEND Nurse Practitioner Family
DX: J30.9 Allergic rhinitis, unspecified (principal); F17.221 Nicotine dependence, chewing tobacco, in remission
CPT/HCPCS: 94060; 94726; 94729

== ENCOUNTER 2020-12-21 07:01 | Outpatient (CLI) | payer MEDICARE, OTHER ==
[~2020-12-21] VITALS: Ht 182.9 cm; Wt 136.4 kg
[~2020-12-21 07:01] MED LIST changes: +ASPI-1238 PO; -ASPI-983 PO; -OMEP40CA36 PO; +OMEP40CA6 PO; -RT-ALBUTEROL SULF 2.5 MG/3 ML PRE-MIX VIAL INH ONE; +SERT-414 PO; -SERT100T8 PO
[2020-12-21] MEDS ORDERED: MONT10TA32 PO (15:50)
== END 2020-12-21 16:00 ==
LOC: PREOP 07:01
PROVIDERS: ATTEND Specialist
DX: Z01.818 Encounter for other preprocedural examination (principal)

== ENCOUNTER 2020-12-25 10:49 | Day surgery (SDC) | payer MEDICARE, OTHER ==
[~2020-12-25] VITALS: Ht 182.9 cm; Wt 136.4 kg
[~2020-12-25 10:49] MED LIST changes: +MONT10TA32 PO
[2020-12-25] MEDS ORDERED: POVIDONE (BETADINE) OPHTH SOLN 5% 30 ML OP ONE (11:00)
[2020-12-25] MEDS ORDERED: MOXIFLOXACIN OPHTH SOLN 5 MG/ML 0.3 ML SYRINGE OP ONE (11:00)
[2020-12-25] MEDS ORDERED: TIMOLOL MALEATE 0.5% 5 ML (TIMOPTIC) BTL OU PRN (11:00)
[2020-12-25] MEDS ORDERED: LIDOCAINE PF 1% 2 ML VIAL IR PRN (11:00)
[2020-12-25] MEDS: TETRACAINE 0.5% OPHTH SOLN 4 ML BTL (SINGLE DOSE ONLY) OU PRN ×4 (11:03→11:19)
[2020-12-25] MEDS: PHENYLEPHRINE 10% OPHTH (NEO-SYN) 5 ML BTL OU SCH ×3 (11:09→11:19)
[2020-12-25] MEDS: TROPICAMIDE 1% OPH SOLN (MYDRIACYL) 15 ML BTL OP SCH ×3 (11:09→11:19)
[2020-12-25 11:16] VITALS: BP 142/69
[2020-12-25] MEDS ORDERED: MIDAZOLAM 2 MG/2 ML (VERSED) VIAL ONE (11:50)
--- NOTE | 2020-12-25 11:59 | Ophthalmologist Pre-Op Note ---
Pre-Operative Progress Note H&P Reviewed The H&P was reviewed, patient examined and no changes noted. Date H&P Reviewed: Dec 25, 2020 Time H&P Reviewed: 11:58 Pre-Op Dx Cataract, Left Eye BERNABE ELLSWORTH MD Dec 25, 2020 11:58
--- NOTE | 2020-12-25 12:25 | Ophthalmology Operative Report ---
Cataract removal/placement IOL PREOPERATIVE DIAGNOSIS: Cataract Left Eye POSTOPERATIVE DIAGNOSIS: Cataract Left Eye PROCEDURE: Cataract removal and placement of posterior chamber implant, left eye SURGEON: Sundeep Ellsworth ANESTHESIA: Topical with sedation COMPLICATIONS: None ESTIMATED BLOOD LOSS: Minimal DESCRIPTION OF PROCEDURE: After proper informed consent was obtained, the patient, a 70 male, was taken to the Operating Room and the left eye was anesthetized with tetracaine. The left eye was then prepped and draped in the usual manner. A wire lid speculum was placed. A paracentesis was made at the left hand position. Preservative free lidocaine was injected into the anterior chamber followed by viscoelastic. A clear corneal incision was made in the temporal position. A capsulorrhexis was preformed and the central nuclear and cortical material were removed. The posterior capsule was polished and an Jerome 18.5 [id number] was placed into the capsular bag. The residual viscoelastic was aspirated and balanced saline solution was injected into the anterior chamber. Moxifloxacin was injected into the anterior chamber. The wound was checked and found to be water tight. The patient tolerated the procedure well without complications. SUNDEEP ELLSWORTH MD Dec 25, 2020 12:25
[2020-12-25 12:32] VITALS: BP 117/60
[2020-12-25] MEDS ORDERED: acetaZOLAMIDE ER 500 MG CAP (DIAMOX SEQUELS) PO ONE (13:00)
[2020-12-25] MEDS ORDERED: VASOPRESSIN INJECTION 20 UNIT/ML VIAL ONE (13:54)
--- NOTE | 2020-12-25 13:58 | Anesthesia-General Post-Op ---
MAC Patient Condition Mental Status/LOC: Same as Preop Cardiovascular: Satisfactory Nausea/Vomiting: Absent Respiratory: Satisfactory Pain: Controlled Complications: Absent Post Op Complications Complications None Follow Up Care/Instructions Patient Instructions None needed. Anesthesiology Discharge Order Discharge Order Patient is doing well, no complaints, stable vital signs, no apparent adverse anesthesia problems. No complications reported per nursing. SABIHA CARABALLO CRNA Dec 25, 2020 13:58
== END 2020-12-25 12:32 ==
LOC: SDC 10:49
PROVIDERS: ATTEND Specialist
DX: H25.12 Age-related nuclear cataract, left eye (principal); K21.9 Gastro-esophageal reflux disease without esophagitis; M19.90 Unspecified osteoarthritis, unspecified site; F41.9 Anxiety disorder, unspecified; R05 Cough; R06.02 Shortness of breath; R06.2 Wheezing; Z79.899 Other long term (current) drug therapy; Z87.891 Personal history of nicotine dependence; Z79.1 Long term (current) use of non-steroidal anti-inflammatories (NSAID)
CPT/HCPCS: 66984; V2632

== ENCOUNTER 2021-01-08 07:54 | Day surgery (SDC) | payer MEDICARE, OTHER ==
[~2021-01-08] VITALS: Ht 182.9 cm; Wt 136.4 kg
[2021-01-08] MEDS ORDERED: POVIDONE (BETADINE) OPHTH SOLN 5% 30 ML OP ONE (08:00)
[2021-01-08] MEDS ORDERED: LIDOCAINE PF 1% 2 ML VIAL IR PRN (08:00)
[2021-01-08] MEDS ORDERED: MOXIFLOXACIN OPHTH SOLN 5 MG/ML 0.3 ML SYRINGE OP ONE (08:00)
[2021-01-08] MEDS ORDERED: TIMOLOL MALEATE 0.5% 5 ML (TIMOPTIC) BTL OU PRN (08:00)
[2021-01-08 08:10] VITALS: BP 140/68
[2021-01-08] MEDS: TETRACAINE 0.5% OPHTH SOLN 4 ML BTL (SINGLE DOSE ONLY) OU PRN ×4 (08:12→08:30)
[2021-01-08] MEDS: TROPICAMIDE 1% OPH SOLN (MYDRIACYL) 15 ML BTL OP SCH ×3 (08:20→08:30)
[2021-01-08] MEDS: PHENYLEPHRINE 10% OPHTH (NEO-SYN) 5 ML BTL OU SCH ×3 (08:20→08:30)
[2021-01-08] MEDS ORDERED: MIDAZOLAM 2 MG/2 ML (VERSED) VIAL ONE (08:38)
--- NOTE | 2021-01-08 08:51 | Ophthalmologist Pre-Op Note ---
Pre-Operative Progress Note H&P Reviewed The H&P was reviewed, patient examined and no changes noted. Date H&P Reviewed: Jan 08, 2021 Time H&P Reviewed: 08:50 Pre-Op Dx Cataract, Right Eye BERNABE ELLSWORTH MD Jan 08, 2021 08:51
[2021-01-08 09:21] VITALS: BP 126/66
[2021-01-08] MEDS ORDERED: acetaZOLAMIDE ER 500 MG CAP (DIAMOX SEQUELS) PO ONE (09:30)
--- NOTE | 2021-01-08 14:01 | Anesthesia-General Post-Op ---
MAC Patient Condition Mental Status/LOC: Same as Preop Cardiovascular: Satisfactory Nausea/Vomiting: Absent Respiratory: Satisfactory Pain: Controlled Complications: Absent Post Op Complications Complications None Follow Up Care/Instructions Patient Instructions None needed. Anesthesiology Discharge Order Discharge Order Patient was seen after the procedure and he was doing well, no complaints, stable vital signs, no apparent adverse anesthesia problems. KYAW CORREA DO Jan 08, 2021 14:01
--- NOTE | 2021-01-25 12:26 | OPERATIVE REPORT ---
DATE OF SERVICE: 01/08/2021 PREOPERATIVE DIAGNOSIS: Combined cataract, right eye. POSTOPERATIVE DIAGNOSIS: Combined cataract, right eye. ANESTHESIA: Topical with IV sedation. COMPLICATIONS: None. DESCRIPTION OF PROCEDURE: Informed consent was obtained from the patient and placed on his chart. The right pupil was dilated. He was taken to the operating room and placed in a supine position on the operating table. He was sedated by the anesthesia provider. He was prepped and draped in the usual sterile fashion. Attention was directed to the patient's right eye and a wire lid speculum was placed. A paracentesis was made at the left hand position. Preservative-free lidocaine was injected below, followed by viscoelastic. A clear corneal incision was then made in the temporal position with a 2.75 mm keratome. A capsulorrhexis was then made and hydrodissection was carried out. The nucleus was removed by phacoemulsification. The cortex was then aspirated. Posterior capsule was polished and the anterior chamber was refilled with viscoelastic. An Jerome model AU00T0 20.5 diopter lens was placed into the capsular bag. The residual viscoelastic was removed. The anterior chamber was inflated with balanced salt saline. Moxifloxacin was injected. The wounds were checked and found to be watertight. The patient tolerated the procedure well and was taken to recovery room in stable condition. Job ID: [id number] DocumentID: [id number] Dictated Date: 01/25/2021 07:47:04 Hand Ii Cutter Date: 01/25/2021 12:25:43 Dictated By: BERNABE ELLSWORTH MD
== END 2021-01-08 09:21 | disposition home or self-care (01) ==
LOC: SDC 07:54
PROVIDERS: ATTEND Specialist
DX: H25.811 Combined forms of age-related cataract, right eye (principal); F32.9 Major depressive disorder, single episode, unspecified; K21.9 Gastro-esophageal reflux disease without esophagitis; Z79.899 Other long term (current) drug therapy
CPT/HCPCS: 66984; V2632